=== PATIENT | female | born 1990 | race American Indian/Alaskan Native ===

== ENCOUNTER 2017-07-06 07:12 | Emergency (ER) | payer SELFPAY ==
[2017-07-06 07:43] VITALS: BP 123/54
[2017-07-06] MEDS ORDERED: DECADRON IM ONE (09:37)
[2017-07-06] MEDS ORDERED: TORADOL IM ONE (09:37)
[2017-07-06] MEDS ORDERED: ZITHROMAX PO ONE (09:38)
[2017-07-06] MEDS ORDERED: ZOFRAN ODT PO ONE (09:39)
[2017-07-06] MEDS ORDERED: LIDOCAINE VISCOUS 2% PO ONE (09:39)
--- NOTE | 2017-07-06 09:39 | Emergency Department Report ---
ED ENT HPI - General Chief complaint: Sore Throat Stated complaint: SEVERE THROAT PAIN Time Seen by Provider: 07/06/17 08:18 Source: patient Mode of arrival: Ambulatory Limitations: No Limitations - History of Present Illness Initial comments: 27-year-old female past medical history none presents with complaint of 2-3 days of worsening sore throat difficulty swallowing solids and some nausea. Patient states she has had body aches denies fever or chills. Speaking in full sentences no trismus or drooling noted no audible wheezing or stridor. MD complaint: sore throat, difficulty swallowing Onset/Timin -: days(s) Location: throat Severity: moderate Severity scale (0 -10): 6 Quality: aching Consistency: intermittent Improves with: none Worsens with: swallowing, eating Associated Symptoms: pain with swallowing, sore throat - Related Data Previous Rx's Medication Instructions Recorded Last Taken Type Azithromycin [Zithromax Z-ELIUD] 250 mg PO QDAY #6 tablet 07/06/17 Unknown Rx Benzocaine/Menthol [Cepacol Sore 1 each MM Q4H PRN #1 box 07/06/17 Unknown Rx Throat Lozenge] Ibuprofen [Motrin] 600 mg PO Q8H PRN #30 tablet 07/06/17 Unknown Rx Allergies Allergy/AdvReac Type Severity Reaction Status Date / Time Penicillins Allergy Swelling Verified 07/06/17 07:44 ED Dental HPI - General Chief complaint: Sore Throat Stated complaint: SEVERE THROAT PAIN Time Seen by Provider: 07/06/17 08:18 Source: patient Mode of arrival: Ambulatory Limitations: No Limitations - Related Data Previous Rx's Medication Instructions Recorded Last Taken Type Azithromycin [Zithromax Z-ELIUD] 250 mg PO QDAY #6 tablet 07/06/17 Unknown Rx Benzocaine/Menthol [Cepacol Sore 1 each MM Q4H PRN #1 box 07/06/17 Unknown Rx Throat Lozenge] Ibuprofen [Motrin] 600 mg PO Q8H PRN #30 tablet 07/06/17 Unknown Rx Allergies Allergy/AdvReac Type Severity Reaction Status Date / Time Penicillins Allergy Swelling Verified 07/06/17 07:44 ED Review of Systems ROS: Stated complaint: SEVERE THROAT PAIN Other details as noted in HPI Constitutional: denies: chills, fever Eyes: denies: eye pain, eye discharge, vision change ENT: throat pain. denies: ear pain Respiratory: denies: cough, shortness of breath, wheezing Cardiovascular: denies: chest pain, palpitations Endocrine: no symptoms reported Gastrointestinal: denies: abdominal pain, nausea, diarrhea Genitourinary: denies: urgency, dysuria, discharge Musculoskeletal: denies: back pain, joint swelling, arthralgia Skin: denies: rash, lesions Neurological: denies: headache, weakness, paresthesias Psychiatric: denies: anxiety, depression Hematological/Lymphatic: denies: easy bleeding, easy bruising ED Past Medical Hx - Past Medical History Hx Congestive Heart Failure: No Hx Diabetes: No Hx Asthma: No Hx COPD: No Additional medical history: "heart condition" - Surgical History Additional Surgical History: csection x 3 - Social History Smoking Status: Never Smoker Substance Use Type: None - Medications Home Medications: Home Medications Medication Instructions Recorded Confirmed Last Taken Type Azithromycin [Zithromax Z-ELIUD] 250 mg PO QDAY #6 tablet 07/06/17 Unknown Rx Benzocaine/Menthol [Cepacol Sore 1 each MM Q4H PRN #1 box 07/06/17 Unknown Rx Throat Lozenge] Ibuprofen [Motrin] 600 mg PO Q8H PRN #30 tablet 07/06/17 Unknown Rx ED Physical Exam - General Limitations: No Limitations General appearance: alert, in no apparent distress - Head Head exam: Present: atraumatic, normocephalic - Eye Eye exam: Present: normal appearance, PERRL, EOMI - ENT ENT exam: Present: mucous membranes moist - Expanded ENT Exam Expanded Throat exam: Positive: tonsillar erythema, tonsillomegaly, tonsillar exudate (b/ l tonsilliths, uvula midline, 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 Absent: respiratory distress - Cardiovascular Cardiovascular Exam: Present: regular rate, normal rhythm. Absent: systolic murmur, diastolic murmur, rubs, gallop - GI/Abdominal GI/Abdominal exam: Present: soft, normal bowel sounds - Extremities Exam Extremities exam: Present: normal inspection - Back Exam Back exam: Present: normal inspection - Neurological Exam Neurological exam: Present: alert, oriented X3, CN II-XII intact, normal gait - Psychiatric Psychiatric exam: Present: normal affect, normal mood - Skin Skin exam: Present: warm, dry, intact, normal color. Absent: rash ED Course Vital Signs 07/06/17 07:40 Temperature 98.4 F Pulse Rate 86 Respiratory 17 Rate Blood Pressure 123/54 O2 Sat by Pulse 100 Oximetry ED Medical Decision Making - Medical Decision Making A/P: Tonsillitis, tonsilliths 1-patient is allergic to penicillins has hives and angioedema will treat with azithromycin as per up-[email or web address] 2-throat lozenges and anti-inflammatories when necessary 3-will refer patient to outpatient primary care and ENT 4-pt able to tolerate fluids before discharge, no trismus noted drooling normal vital signs Critical care attestation.: If time is entered above; I have spent that time in minutes in the direct care of this critically ill patient, excluding procedure time. ED Disposition Clinical Impression: Acute tonsillitis Qualifiers: Pharyngitis/tonsillitis etiology: unspecified etiology Qualified Code(s): J03.90 - Acute tonsillitis, unspecified Disposition: TO HOME OR SELFCARE Is pt being admited?: No Does the pt Need Aspirin: No Condition: Stable Instructions: Tonsillitis (ED) Prescriptions: Azithromycin [Zithromax Z-ELIUD] 250 mg PO QDAY #6 tablet Benzocaine/Menthol [Cepacol Sore Throat Lozenge] 1 each MM Q4H PRN #1 box PRN Reason: Sore Throat Ibuprofen [Motrin] 600 mg PO Q8H PRN #30 tablet PRN Reason: Pain Referrals: JUANITO JAY MD [Staff Physician] - 3-5 Days [facility] [Outside] - 3-5 Days [facility] [Outside] - 3-5 Days Forms: Work/School Release Form(ED) Time of Disposition: 10:16
== END 2017-07-06 10:40 | disposition home or self-care (01) ==
LOC: ED 07:12
DX: J03.90 Acute tonsillitis, unspecified (principal); Z88.0 Allergy status to penicillin
CPT/HCPCS: 87116; 87430; 96372; 99282; J1100; J1885; Q0162

== ENCOUNTER 2018-01-25 15:18 | Emergency (ER) | payer OTHER ==
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
[2018-01-25] MEDS ORDERED: TYLENOL #3 PO ONE (19:15)
[2018-01-25 19:35] LABS: Basophils # (Auto) 0.1 K/mm3 (0.0-0.1); Basophils % (Auto) 0.5 % (0.0-1.8); Eosinophils % (Auto) 0.2 % (0.0-4.3); Hematocrit 30.8 % (30.3-42.9); Hemoglobin 9.4 gm/dl (10.1-14.3); Lymphocytes # (Auto) 2.2 K/mm3 (1.2-5.4); Lymphocytes % (Auto) 15.1 % (13.4-35.0); Mean Corpuscular HGB Conc 31 % (30-34); Monocytes # (Auto) 0.6 K/mm3 (0.0-0.8); Monocytes % (Auto) 4.1 % (0.0-7.3); Platelet Count 403 K/mm3 (140-440); Red Blood Count 4.73 M/mm3 (3.65-5.03)
[2018-01-25 19:53] LABS: Mean Corpuscular Hemoglobin 20 pg (28-32); Mean Corpuscular Volume 65 fl (79-97); Red Cell Distribution Width 24.7 % (13.2-15.2)
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
[2018-01-25 21:04] LABS: Bilirubin,Urine NEG (Negative); Blood,Urine NEG (Negative); Color,Urine Yellow (Yellow); Protein,Urine <15 mg/dL mg/dL (Negative); Urobilinogen,Urine < 2.0 mg/dL (<2.0)
[2018-01-26 00:20] VITALS: BP 122/61
== END 2018-01-25 23:40 | disposition home or self-care (01) ==
LOC: ED 15:18
DX: O9A.211 Injury, poisoning and certain other consequences of external causes complicating pregnancy, first trimester (principal); S80.01XA Contusion of right knee, initial encounter; M79.1 Myalgia; Z3A.08 8 weeks gestation of pregnancy; V49.49XA Driver injured in collision with other motor vehicles in traffic accident, initial encounter; Y93.89 Activity, other specified; Y92.89 Other specified places as the place of occurrence of the external cause; Y99.8 Other external cause status
CPT/HCPCS: 36415; 76801; 76817; 81001; 84703; 85025

== ENCOUNTER 2021-08-30 15:16 | Emergency (ER) | payer SELFPAY ==
[2021-08-30 15:22] VITALS: BP 122/79
[2021-08-30 18:12] LABS: Basophils % (Auto) 0.6 % (0.0-1.8); Eosinophils # (Auto) 0.1 K/mm3 (0.0-0.4); Eosinophils % (Auto) 1.7 % (0.0-4.3); Hematocrit 40.7 % (30.3-42.9); Hemoglobin 12.6 gm/dl (10.1-14.3); Lymphocytes # (Auto) 2.5 K/mm3 (1.2-5.4); Mean Corpuscular HGB Conc 31 % (30-34); Mean Corpuscular Volume 86 fl (79-97); Monocytes # (Auto) 0.5 K/mm3 (0.0-0.8); Monocytes % (Auto) 5.9 % (0.0-7.3); Platelet Count 340 K/mm3 (140-440); Red Blood Count 4.74 M/mm3 (3.65-5.03); Red Cell Distribution Width 16.7 % (13.2-15.2)
[2021-08-30 18:23] LABS: Alanine Aminotransferase 12 units/L (7-56); Albumin 4.3 g/dL (3.9-5); Blood Urea Nitrogen 11 mg/dL (7-17); Calcium 8.9 mg/dL (8.4-10.2); Hemolysis Index 6
--- NOTE | 2021-08-30 18:24 | Emergency Department Report ---
ED General Adult HPI - General Chief complaint: Medical Clearance Stated complaint: FINGERSTICK Source: patient Mode of arrival: Ambulatory Limitations: No Limitations - History of Present Illness Initial comments: Draw blood on HIV-positive patient at the [facility] blood axilla status of in the finger just prior to arrival presents emerge department seeking postexposure needle prophylaxis would like to take the antiviral cocktail as recommended by the CDC -: Sudden Radiation: non-radiation Consistency: constant Improves with: none Worsens with: none Associated Symptoms: denies other symptoms Treatments Prior to Arrival: none - Related Data Previous Rx's Medication Instructions Recorded Last Taken Type Azithromycin [Zithromax Z-ELIUD] 250 mg PO QDAY #6 tablet 07/06/17 Unknown Rx Benzocaine/Menthol [Cepacol Sore 1 each MM Q4H PRN #1 box 07/06/17 Unknown Rx Throat Lozenge] Ibuprofen [Motrin] 600 mg PO Q8H PRN #30 tablet 07/06/17 Unknown Rx Acetaminophen [Tylenol] 500 mg PO Q8H PRN #12 tablet 01/25/18 Unknown Rx Emtricitabine/Tenofovir (Tdf) 1 each PO DAILY #28 tablet 08/30/21 Unknown Rx [Truvada 133 mg-200 mg Tablet] Allergies Allergy/AdvReac Type Severity Reaction Status Date / Time Penicillins Allergy Swelling Verified 08/30/21 15:19 ED Review of Systems ROS: Stated complaint: FINGERSTICK Other details as noted in HPI Comment: All other systems reviewed and negative ED Past Medical Hx - Past Medical History Hx Congestive Heart Failure: No Hx Diabetes: No Hx Asthma: No Hx COPD: No Additional medical history: tachycardia - Surgical History Additional Surgical History: csection x 3, cardiac ablation - Social History Smoking Status: Never Smoker Substance Use Type: None - Medications Home Medications: Home Medications Medication Instructions Recorded Confirmed Last Taken Type Azithromycin [Zithromax Z-ELIUD] 250 mg PO QDAY #6 tablet 07/06/17 Unknown Rx Benzocaine/Menthol [Cepacol Sore 1 each MM Q4H PRN #1 box 07/06/17 Unknown Rx Throat Lozenge] Ibuprofen [Motrin] 600 mg PO Q8H PRN #30 tablet 07/06/17 Unknown Rx Acetaminophen [Tylenol] 500 mg PO Q8H PRN #12 tablet 01/25/18 Unknown Rx Emtricitabine/Tenofovir (Tdf) 1 each PO DAILY #28 tablet 08/30/21 Unknown Rx [Truvada 133 mg-200 mg Tablet] ED Physical Exam - General Limitations: No Limitations General appearance: alert, in no apparent distress - Head Head exam: Present: atraumatic, normocephalic - Eye Eye exam: Present: normal appearance - ENT ENT exam: Present: mucous membranes moist - Neck Neck exam: Present: normal inspection - Respiratory Respiratory exam: Present: normal lung sounds bilaterally. Absent: respiratory distress - Cardiovascular Cardiovascular Exam: Present: regular rate, normal rhythm. Absent: systolic murmur, diastolic murmur, rubs, gallop - GI/Abdominal GI/Abdominal exam: Present: soft, normal bowel sounds - Extremities Exam Extremities exam: Present: normal inspection - Back Exam Back exam: Present: normal inspection - Neurological Exam Neurological exam: Present: alert, oriented X3 - Psychiatric Psychiatric exam: Present: normal affect, normal mood - Skin Skin exam: Present: warm, dry, intact, normal color. Absent: rash ED Course Vital Signs 08/30/21 15:21 Temperature 97.8 F Pulse Rate 82 Respiratory 18 Rate Blood Pressure 122/79 [Right] O2 Sat by Pulse 100 Oximetry ED Medical Decision Making - Lab Data Result diagrams: 08/30/21 17:45 Critical care attestation.: If time is entered above; I have spent that time in minutes in the direct care of this critically ill patient, excluding procedure time. ED Disposition Condition: Stable Instructions: Emtricitabine; Tenofovir disoproxil fumarate tablets, Sharps Disposal Prescriptions: Emtricitabine/Tenofovir (Tdf) [Truvada 133 mg-200 mg Tablet] 1 each PO DAILY #28 tablet Referrals: PRIMARY CARE, [Primary Care Provider] - 3-5 Days
[2021-08-30 18:27] LABS: BUN/Creatinine Ratio 18
[2021-08-30 19:12] LABS: Hepatitis C Virus Antibody Non-Reactive (NonReactive)
[2021-08-30 19:24] LABS: Hepatitis B Surface Antigen Nonreactive (Negative)
== END 2021-08-30 18:38 ==
LOC: ED 15:16
DX: S61.239A Puncture wound without foreign body of unspecified finger without damage to nail, initial encounter (principal); Z88.0 Allergy status to penicillin; Z98.890 Other specified postprocedural states; Z79.899 Other long term (current) drug therapy; W46.0XXA Contact with hypodermic needle, initial encounter; Y93.89 Activity, other specified; Y92.89 Other specified places as the place of occurrence of the external cause; Y99.0 Civilian activity done for income or pay
CPT/HCPCS: 36415; 80053; 80074; 85025; 87806; 99283